=== PATIENT | male | born 1995 | race Caucasian/White ===

== ENCOUNTER 2017-09-26 15:06 | Emergency (ER) | payer BC ==
[~2017-09-26] VITALS: Ht 190.5 cm; Wt 124.1 kg
[~2017-09-26 15:06] MED LIST: BACTRIM,SEPT1 TABLET PO; OMEPRAZOLE40 M1 PO; PREVACID15 MG PO
[2017-09-26] MEDS ORDERED: MOTRIN600 MG PO (17:09)
[2017-09-26] MEDS ORDERED: TRAMADOL HCL50 MG PO (17:09)
[2017-09-26 17:31] VITALS: BP 130/65
== END 2017-09-26 17:34 | disposition home or self-care (01) ==
LOC: EME 15:06
DX: S92.511A Displaced fracture of proximal phalanx of right lesser toe(s), initial encounter for closed fracture (principal); W18.40XA Slipping, tripping and stumbling without falling, unspecified, initial encounter
CPT/HCPCS: 73630; 99281; 99284